=== PATIENT | female | born 1935 | race Caucasian/White ===

== ENCOUNTER 2022-05-13 14:01 | Emergency (ER) | payer MEDICARE, OTHER ==
[~2022-05-13] VITALS: Ht 167.6 cm; Wt 60.8 kg
[2022-05-13 14:38] LABS: BASOPHILS ABSOLUTE AUTO 0.02 K/mm3 (0.00-0.23); BASOPHILS PERCENT AUTO 0 % (0-2); EOSINOPHILS ABSOLUTE AUTO 0.01 K/mm3 (0.00-0.68); EOSINOPHILS PERCENT AUTO 0 % (0-6); Hematocrit 30.5 % (33.0-51.0); Hemoglobin 10.2 g/dL (11.5-16.0); IMMATURE GRAN ABSOLUTE AUTO 0.05 K/mm3 (0.00-0.10); IMMATURE GRAN PERCENT AUTO 1 % (0-1); LYMPHOCYTES ABSOLUTE AUTO 0.68 K/mm3 (0.84-5.20); LYMPHOCYTES PERCENT AUTO 7 % (21-46); MONOCYTES ABSOLUTE AUTO 0.56 K/mm3 (0.16-1.47); MONOCYTES PERCENT AUTO 6 % (4-13); Mean Corpuscular HGB 30.3 pg (26.0-34.0); Mean Corpuscular HGB Conc 33.4 g/dL (31.5-36.5); Mean Corpuscular Volume 91 fL (80-100); Mean Platelet Volume 10.2 fL (9.1-12.4); NEUTROPHILS ABSOLUTE AUTO 8.21 K/mm3 (1.96-9.15); NEUTROPHILS PERCENT AUTO 86 % (41-73); Platelet Count 218 K/mm3 (150-400); RDW Coefficient Variation 14.6 % (11.7-14.2); RDW Standard Deviation 48.7 fL (35.1-46.3); Red Blood Cell Count 3.37 M/mm3 (3.80-5.20); White Blood Cell Count 9.53 K/mm3 (4.00-11.30)
[2022-05-13 14:54] LABS: Albumin, Blood 3.5 g/dL (3.4-5.0); Albumin/Globulin Ratio 0.8 (0.8-1.8); Bilirubin, Total 0.6 mg/dL (0.1-1.0); Bun/Creatinine Ratio 29.2 (12.0-20.0); Calcium, Blood 8.7 mg/dL (8.5-10.1); Creatinine, Blood 0.89 mg/dL (0.40-1.00); Globulin, Blood 4.4 g/dL (2.2-4.0); Potassium, Blood 3.1 mmol/L (3.5-5.5); Total Protein, Blood 7.9 g/dL (6.4-8.2)
[2022-05-13 15:23] LABS: Influenza B, PCR NEGATIVE (NEGATIVE); Resp Syncytial Virus, PCR NEGATIVE (NEGATIVE); SARS-Cov-2 (COVID-19) PCR, MMC NEGATIVE (NEGATIVE)
[2022-05-13 15:55] LABS: Influenza A, PCR POSITIVE (NEGATIVE)
[2022-05-13] MEDS ORDERED: POTCHL20ER PO (16:26)
[2022-05-13] MEDS ORDERED: ESCI10 PO (16:26)
[2022-05-13] MEDS ORDERED: METHI10 PO (16:26)
[2022-05-13] MEDS ORDERED: METO50ER PO (16:26)
[2022-05-13] MEDS ORDERED: ELIQUIS5 M2 PO (16:27)
[2022-05-13] MEDS ORDERED: ATORVASTATIN CA40 MG PO (16:27)
[2022-05-13] MEDS ORDERED: NALOXONE H0.4 MG/1 M IM (16:28)
[2022-05-13] MEDS ORDERED: FURO20 PO (16:28)
[2022-05-13] MEDS ORDERED: ALBU90OI INH (16:32)
[2022-05-13] MEDS ORDERED: ONDA4ODT MM (16:32)
[2022-05-13] MEDS ORDERED: AZIT250 PO (16:32)
== END 2022-05-13 16:57 | disposition home or self-care (01) ==
LOC: ER 14:01 → EDBD 14:01 → ER 16:57
PROVIDERS: Student in an Organized Health Care Education/Training Program
DX: J10.1 Influenza due to other identified influenza virus with other respiratory manifestations (principal); J90 Pleural effusion, not elsewhere classified; E87.6 Hypokalemia; Z88.0 Allergy status to penicillin; Z87.891 Personal history of nicotine dependence; Z20.822 Contact with and (suspected) exposure to COVID-19
CPT/HCPCS: 0241U; 71046; 80053; 83880; 85025; 93005; 93010; 94640; 94664; A9270

== ENCOUNTER 2022-07-22 19:35 | Emergency (ER) | payer MEDICARE, OTHER ==
[~2022-07-22] VITALS: Ht 167.6 cm; Wt 68.0 kg
[~2022-07-22 19:35] MED LIST: ALBU90OI INH; ATORVASTATIN CA40 MG PO; AZIT250 PO; ELIQUIS5 M2 PO; ESCI10 PO; FURO20 PO; METHI10 PO; METO50ER PO; NALOXONE H0.4 MG/1 M IM; ONDA4ODT MM; POTCHL20ER PO
[2022-07-22 20:29] LABS: Source, Urine Foley catheter
[2022-07-22 20:37] LABS: Appearance, Urine Cloudy (Clear); Bilirubin, Urine Neg (Neg); Blood, Urine 4+ (Neg); Color, Urine Yellow (P-Yellow); Glucose Qualitative, Urine Neg (Neg); Ketones, Urine Neg (Neg); Leukocyte Esterase, Urine 3+ (Neg); Nitrite, Urine Pos (Neg); Protein, Urine 3+ (Neg); Specific Gravity, Urine 1.015 (1.003-1.022); Urobilinogen, Urine NORM (Normal)
[2022-07-22 20:53] LABS: Bacteria Mod /hpf; Granular Casts 0-2 /lpf (0); Hyaline Casts 0-2 /lpf (0-2); Squamous Epithelial Cells Rare /hpf (Few); White Blood Cells, Urine 25-50 /hpf (0-5)
[2022-07-22] MEDS ORDERED: CEPH500 PO (21:19)
== END 2022-07-22 22:15 | disposition home or self-care (01) ==
LOC: ER 19:35
PROVIDERS: Emergency Medicine
DX: T83.031A Leakage of indwelling urethral catheter, initial encounter (principal); Y84.6 Urinary catheterization as the cause of abnormal reaction of the patient, or of later complication, without mention of misadventure at the time of the procedure; N39.0 Urinary tract infection, site not specified; I50.9 Heart failure, unspecified; Z88.0 Allergy status to penicillin; Z79.899 Other long term (current) drug therapy; Z79.01 Long term (current) use of anticoagulants; Z87.891 Personal history of nicotine dependence
CPT/HCPCS: 51702; 81001; 99283; A9270

== ENCOUNTER → 2022-09-17 | Outpatient (CLI) | payer MEDICARE, OTHER ==
[~2022-09-17] MED LIST changes: +CEPH500 PO
== END | disposition home or self-care (01) ==
LOC: LAB SHORT 18:52 → LAB 18:52
DX: T83.511A Infection and inflammatory reaction due to indwelling urethral catheter, initial encounter (principal); N39.0 Urinary tract infection, site not specified
CPT/HCPCS: 87086